=== PATIENT | female | born 1995 ===

== ENCOUNTER 2017-06-12 22:25 | Emergency (ER) | payer MEDICAID ==
[2017-06-13 00:42] VITALS: BP 107/75; PULSE 109; RESP 18; TEMP 98.6; O2SAT 99
[2017-06-13] MEDS ORDERED: Sodium Chloride 0.9% 1,000 ML IV STA (01:19)
--- NOTE | 2017-06-13 01:23 | ED PDOC ---
Arrival/HPI <Rodo Torres - Last Filed: 06/13/17 01:28> - General Historian: Patient - History of Present Illness Time/Duration: 4-6 hours Symptom Onset: Gradual Symptom Course: Unchanged Activities at Onset: Light Context: Home <Nelson Gordon Zarina - Last Filed: 06/13/17 03:02> - General Chief Complaint: Abdominal Pain Time Seen by Provider: 06/13/17 01:14 - History of Present Illness Narrative History of Present Illness (Text): 06/13/17 01:19 21 year old female presents to the Emergency department, with no significant past medical history, presents to the Emergency department complaining of nausea and vomiting for 6 hours. Patient denies and informs negative result on home test. Patient denies abdominal pain, rectal bleeding, vaginal discharge, hematuria, hematochezia, hematemesis, chest pain, shortness of breath, fever, chills, diarrhea, stool changes, urinary output changes or any other complaints. (Nelson Gordon) Past Medical History - Provider Review Nursing Documentation Reviewed: Yes - Psychiatric Hx Substance Use: No <GordonChristina tsaihelen Srinivasan - Last Filed: 06/13/17 03:02> Family/Social History - Physician Review Nursing Documentation Reviewed: Yes Family/Social History: No Known Family HX Smoking Status: Never Smoked Hx Alcohol Use: Yes Frequency of alcohol use: Socially Hx Substance Use: No <Christina Gordonhelen Srinivasan - Last Filed: 06/13/17 03:02> Allergies/Home Meds <Rodo Torres - Last Filed: 06/13/17 01:28> <GordonNelson - Last Filed: 06/13/17 03:02> Allergies/Adverse Reactions: Allergies No Known Allergies Allergy (Verified 06/13/17 00:37) Review of Systems - Physician Review All systems were reviewed & negative as marked: Yes - Review of Systems Constitutional: Normal. absent: Fevers Eyes: Normal ENT: Normal Respiratory: Normal. absent: SOB Cardiovascular: Normal. absent: Chest Pain Gastrointestinal: Nausea, Vomiting. absent: Abdominal Pain, Diarrhea, Hematochezia, Hematemesis Genitourinary Female: Normal. absent: Hematuria, Urine Output Changes, Vaginal Discharge Musculoskeletal: Normal Skin: Normal Neurological: Normal Endocrine: Normal Hemo/Lymphatic: Normal Psychiatric: Normal <GordonNelson tsai Zarina - Last Filed: 06/13/17 03:02> Physical Exam Vital Signs Reviewed: Yes Temperature: Afebrile Blood Pressure: Normal Pulse: Tachycardic Respiratory Rate: Normal Appearance: Positive for: Well-Appearing, Non-Toxic, Comfortable Pain Distress: None Mental Status: Positive for: Alert and Oriented X 3 - Systems Exam Head: Present: Atraumatic, Normocephalic Pupils: Present: PERRL Extroacular Muscles: Present: EOMI Conjunctiva: Present: Normal Mouth: Present: Moist Mucous Membranes Neck: Present: Normal Range of Motion Respiratory/Chest: Present: Clear to Auscultation, Good Air Exchange. No: Respiratory Distress, Accessory Muscle Use Cardiovascular: Present: Regular Rate and Rhythm, Normal S1, S2. No: Murmurs Abdomen: Present: Normal Bowel Sounds. No: Tenderness, Distention, Peritoneal Signs Back: Present: Normal Inspection Upper Extremity: Present: Normal Inspection. No: Cyanosis, Edema Lower Extremity: Present: Normal Inspection. No: Edema Neurological: Present: GCS=15, CN II-XII Intact, Speech Normal Skin: Present: Warm, Dry, Normal Color. No: Rashes Psychiatric: Present: Alert, Oriented x 3, Normal Insight, Normal Concentration <Nelson Gordon Zarina - Last Filed: 06/13/17 03:02> Vital Signs Temp Pulse Resp BP Pulse Ox 06/13/17 00:37 98.6 F 109 H 18 107/75 99 Medical Decision Making <Rodo Torres - Last Filed: 06/13/17 01:28> Re-evaluation Time: 02:39 Reassessment Condition: Re-examined, Improved - Lab Interpretations I have reviewed the lab results: Yes Interpretation: No clinic. lab abnormalty (mild anemia) <Nelson Gordon Zarina - Last Filed: 06/13/17 03:02> ED Course and Treatment: 06/13/17 01:24 Impression: 21 year old female presents to the Emergency department for nausea and vomiting. Plan: -- Labs -- Pepcid -- IV Fluids -- Zofran -- Urine Cultire -- Urinalysis, hCG -- Reassess and disposition Progress Notes: 06/13/17 02:39 Re-evaluation. Patient feels better. Discussed results and plan with patient who expresses understanding. All questions answered and there is agreement with the plan to discharge home with instructions. Patient stable for discharge. Return if symptoms persist or worsen. (Nelson Gordon) - Lab Interpretations Lab Results: 06/13/17 01:48 06/13/17 01:48 Lab Results 06/13/17 01:48: Sodium 142, Potassium 3.5 L, Chloride 105, Carbon Dioxide 26, Anion Gap 15, BUN 13, Creatinine 0.5 L, Est GFR ( Amer) > 60, Est GFR ( Non-Af Amer) > 60, Random Glucose 92, Calcium 9.4, Total Bilirubin 0.7, AST 22, ALT 29, Alkaline Phosphatase 60, Total Protein 7.6, Albumin 4.5, Globulin 3.1, Albumin/Globulin Ratio 1.4, Lipase 97 06/13/17 01:48: WBC 10.9, RBC 4.60, Hgb 11.5 L, Hct 36.9, MCV 80.2, MCH 25.0, MCHC 31.2, RDW 15.8 H, Plt Count 292, MPV 10.3, Gran % 89.5 H, Lymph % (Auto) 4.8 L, [place] % (Auto) 5.1, Eos % (Auto) 0.5 L, Baso % (Auto) 0.1, Gran # 9.77 H, Lymph # 0.5 L, [place] # 0.6, Eos # 0.1, Baso # 0.01, Neutrophils % (Manual) 85 H, Band Neutrophils % 7 H, Lymphocytes % (Manual) 4 L, Monocytes % (Manual) 4, Platelet Evaluation Normal 06/13/17 01:31: Urine Color Yellow, Urine Appearance Sl cloudy, Urine pH 6.0, Ur Specific [place] 1.025, Urine Protein Trace H, Urine Glucose (UA) Negative, Urine Ketones 40 H, Urine Blood Negative, Urine Nitrate Negative, Urine Bilirubin Negative, Urine Urobilinogen 0.2, Ur Leukocyte Esterase Negative, Urine RBC 0 - 2, Urine WBC 1 - 3, Ur Epithelial Cells 3 - 4, Urine Bacteria Trace, Urine HCG, Qual Negative - Medication Orders Current Medication Orders: Discontinued Medications Famotidine (Pepcid) 20 mg IVP STAT STA Stop: 06/13/17 01:20 Last Admin: 06/13/17 01:52 Dose: 20 mg IVP Administration Document 06/13/17 01:52 OCS (Rec: 06/13/17 01:52 OCS [id number]) Charges for Administration # of IVP Administrations 1 Sodium Chloride (Sodium Chloride 0.9%) 1,000 mls @ 1,000 mls/hr IV .Q1H STA Stop: 06/13/17 02:18 Last Admin: 06/13/17 01:52 Dose: 1,000 mls/hr eMAR Start Stop Document 06/13/17 01:52 OCS (Rec: 06/13/17 01:52 OCS [id number]) Intravenous Solution Start Date 06/13/17 Start Time 01:52 End Date 06/13/17 End time 02:52 Total Infusion Time 60 Ondansetron HCl (Zofran Inj) 4 mg IVP STAT STA Stop: 06/13/17 01:20 Last Admin: 06/13/17 01:52 Dose: 4 mg IVP Administration Document 06/13/17 01:52 OCS (Rec: 06/13/17 01:52 OCS [id number]) Charges for Administration # of IVP Administrations 1 - PA / ON AIR PERSONALITY / Resident Statement MD/DO has reviewed & agrees with the documentation as recorded. MD/DO has examined the patient and agrees with the treatment plan. <Rodo Torres - Last Filed: 06/13/17 01:28> - Scribe Statement The provider has reviewed the documentation as recorded by the Scribe <Nelson Gordon - Last Filed: 06/13/17 03:02> - Scribe Statement Reinaldo Atwood. All medical record entries made by the Scribe were at my direction and personally dictated by me. I have reviewed the chart and agree that the record accurately reflects my personal performance of the history, physical exam, medical decision making, and the department course for this patient. I have also personally directed, reviewed, and agree with the discharge instructions and disposition. (Nelson Gordon) Disposition/Present on Arrival <Rodo Torres - Last Filed: 06/13/17 01:28> - Present on Arrival Any Indicators Present on Arrival: No History of DVT/PE: No History of Uncontrolled Diabetes: No Urinary Catheter: No History of Decub. Ulcer: No History Surgical Site Infection Following: None - Disposition Have Diagnosis and Disposition been Completed?: Yes Disposition Time: 02:39 Patient Plan: Discharge <Christina Gordonhelen P - Last Filed: 06/13/17 03:02> - Disposition Diagnosis: Nausea & vomiting Disposition: HOME/ ROUTINE Condition: GOOD Discharge Instructions (ExitCare): Acute Nausea and Vomiting (ED) Additional Instructions: Call private doctor for follow up visit in 1-2 days. Take medication for nausea as instructed. Avoid fatty meal, dairy products, spicy food, coffee, sodas. eat soups. Drink enough fluids. return to ED if you develop abdominal pain or worsening of symptoms. Prescriptions: Ondansetron ODT [Zofran ODT] 4 mg PO Q4H PRN #20 odt PRN Reason: Nausea/Vomiting Referrals: [facility] [Outside] - Follow up with primary [facility] [Outside] - Follow up with primary Forms: [facility] (Maltese), WORK NOTE
[2017-06-13 01:48] LABS: URINE BILIRUBIN NEGATIVE (NEGATIVE); URINE BLOOD NEGATIVE (NEGATIVE); URINE GLUCOSE (UA) NEGATIVE (NEGATIVE); URINE LEUKOCYTE ESTERASE NEGATIVE Leu/uL (NEGATIVE); URINE NITRATE NEGATIVE (NEGATIVE); URINE PROTEIN TRACE mg/dL (<30 mg/dL); URINE UROBILINOGEN 0.2 E.U./dL (<1 E.U./dL)
[2017-06-13 01:49] LABS: URINE APPEARANCE SL CLOUDY (CLEAR); URINE COLOR YELLOW (YELLOW)
[2017-06-13 01:57] LABS: BASO # 0.01 K/mm3 (0.0-2.0); BASO % 0.1 % (0.0-3.0); EOS # 0.1 (0.0-0.7); EOS % 0.5 % (1.5-5.0); GRAN # 9.77 (1.4-6.5); GRAN % 89.5 % (50.0-68.0); HEMOGLOBIN 11.5 g/dL (12.0-16.0); LYMPH # 0.5 (1.2-3.4); LYMPH % 4.8 % (22.0-35.0); MEAN CELL VOLUME 80.2 fl (80.0-105.0); MEAN CORPUSCULAR HGB CONC 31.2 g/dl (31.0-37.0); MEAN PLATELET VOLUME 10.3 fl (7.0-11.0); MONO # 0.6 (0.1-0.6); MONO % 5.1 % (1.0-6.0); PLATELET COUNT 292 10^3/uL (120.0-450.0); RED CELL DISTRIBUTION WIDTH 15.8 % (11.5-14.5); WHITE BLOOD COUNT 10.9 10^3/ul (4.5-11.0)
[2017-06-13 01:59] LABS: HCG,QUALITATIVE URINE NEGATIVE (NEGATIVE); URINE BACTERIA TRACE (NEG); URINE RBC 0 - 2 /hpf (0-2)
[2017-06-13 02:09] LABS: ALB/GLOB RATIO 1.4 (1.1-1.8); ALBUMIN 4.5 g/dL (3.0-4.8); ALT/SGPT 29 U/L (7-56); AST/SGOT 22 U/L (14-36); BLOOD UREA NITROGEN 13 mg/dL (7-21); CALCIUM 9.4 mg/dL (8.4-10.5); GFR AFRICAN-AMERICAN > 60; GFR NON-AFRICAN AMERICAN > 60; LIPASE 97 U/L (23-300)
[2017-06-13 02:25] LABS: BAND 7 % (0-2); LYMPHOCYTE 4 % (22.0-35.0); MONOCYTE 4 % (1.0-6.0); NEUTROPHIL 85 % (50.0-70.0); PLATELET ESTIMATE NORMAL (NORMAL)
== END 2017-06-13 03:02 | disposition home or self-care (01) ==
LOC: MERGE 22:25 → ED 22:25
DX: R11.2 Nausea with vomiting, unspecified (principal)
CPT/HCPCS: 80053; 81001; 83690; 84703; 85025; 87086; 96361; 96374; 96375; 96376; 99283; J2405; J7040